=== PATIENT | female | born 1930 | race Caucasian/White ===

== ENCOUNTER 2016-04-18 10:41 | Emergency (ER) | payer BC, MEDICARE ==
[~2016-04-18] VITALS: Ht 162.6 cm; Wt 60.8 kg
[~2016-04-18 10:41] MED LIST: ACIP20TA19; ECOT81TA2; IMDU30TA; PRAV40TA; PRIN10TA
[2016-04-18 11:11] VITALS: BP 141/85; PULSE 74; RESP 16; TEMP 98.5; O2SAT 95
[2016-04-18] MEDS ORDERED: ISOS30TA3 PO (12:03)
[2016-04-18] MEDS ORDERED: PRAV20TA2 PO (12:03)
[2016-04-18] MEDS ORDERED: METO25TA3 PO (12:03)
[2016-04-18] MEDS ORDERED: GABA300C5 PO (12:03)
[2016-04-18] MEDS ORDERED: FERR1TAB58 PO (12:03)
[2016-04-18] MEDS ORDERED: APIX2.5T PO (12:03)
[2016-04-18] MEDS ORDERED: DEXAMETHASONE SOD PHOS 4 MG/ML VIAL IM ONE (12:15)
--- NOTE | 2016-04-18 12:18 | PD ---
HPI Chief Complaint: Musculoskeletal Complaint Time Seen by Provider: 12:12 Travel History International Travel<30 days: No Contact w/Intl Traveler<30days: No Traveled to known affect area: No History of Present Illness HPI 86-year-old female with history of arthritis presents to the emergency room for evaluation of left-sided back pain with radiation down her left lower extremity that has been ongoing for the past 4 days. Denies trauma or injury. Patient has history of chronic low back pain with occasional radiation down the left lower extremity but states it hasn't been this severe in a while. Pain is worsened with range of motion or ambulation. Improves with rest. She has been applying topical [id number] patches to the area without significant relief in symptoms. States this typically relieves her symptoms. She called her anesthesiologist for steroid injection, which has been helpful in the past, but they were unable to get her in. She then called her primary care physician who recommended she come to the emergency room for evaluation. She denies loss of bowel or bladder control, saddle anesthesia, or lower extremity paresthesias. She has been able to ambulate since onset of symptoms. States she is very active and this pain has kept her in bed more than usual the past few days. PFSH Past Medical History Cardiovascular Problems: Yes High Cholesterol: Yes Chest Pain: Yes GERD: Yes Genitourinary: No Hypertension: Yes Immune Disorder: No Musculoskeletal: Yes Neurologic: No Reproductive: No Respiratory: No Renal Failure: Yes Ulcer: Yes Tetanus Vaccination: < 5 Years Influenza Vaccination: Yes ?: Not Past Surgical History Abdominal Surgery: No Appendectomy: Yes Cardiac Surgery: Yes (STENTS) Cholecystectomy: Yes Coronary Stent: Yes Ear Surgery: No Endocrine Surgery: No Eye Surgery: No Genitourinary Surgery: No Gynecologic Surgery: No Oral Surgery: No Thoracic Surgery: No Social History Alcohol Use: Yes (RARELY) Tobacco Use: No (quit 50 years ago) Substance Use: No Allergies-Medications (Allergen,Severity, Reaction): Coded Allergies: Codeine (Verified Allergy, Intermediate, GI UPSET, 04/18/16) Reported Meds & Prescriptions Reported Meds & Active Scripts Active Reported Iron (Ferrous Sulfate) 50 Mg Tab 50 Mg PO DAILY Eliquis (Apixaban) 2.5 Mg Tab 2.5 Mg PO BID Metoprolol Tartrate 25 Mg Tab 25 Mg PO DAILY Gabapentin 300 Mg Cap 300 Mg PO HS Pravastatin 20 Mg Tab 20 Mg PO DAILY Isosorbide Mononitrate ER (Isosorbide Mononitrate) 30 Mg Venus 30 Mg PO DAILY Imdur (Isosorbide Mononitrate) 30 Mg Tab Aciphex (Rabeprazole Sodium) 20 Mg Tabdr Prinivil (Lisinopril) 10 Mg Tab Pravachol 40 Mg Tab Ecotrin Low Strength (Aspirin) 81 Mg Tabec Review of Systems Except as stated in HPI: all other systems reviewed are Neg Physical Exam Narrative GENERAL: Well-nourished, well-developed female in no acute distress. Afebrile. Ambulatory. SKIN: Warm and dry. No erythema or ecchymosis. HEAD: Normocephalic. EYES: No scleral icterus. No injection or drainage. NECK: Supple, trachea midline. No JVD or lymphadenopathy. BACK: Nontender without obvious deformity. No CVA tenderness. Data Data Last Documented VS Vital Signs Date Time Temp Pulse Resp B/P Pulse Ox O2 Delivery O2 Flow Rate FiO2 04/18/16 11:11 98.5 74 16 141/85 95 Orders Dexamethasone Inj (Decadron Inj) (04/18/16 12:15) MDM Medical Decision Making Medical Screen Exam Complete: Yes Emergency Medical Condition: Yes Medical Record Reviewed: Yes Differential Diagnosis Osteoarthritis versus sciatica versus degenerative disc disease versus chronic low back pain Narrative Course 86-year-old female with a history of osteoarthritis, back pain, and sciatica presents to the emergency room for evaluation of left-sided back pain with radiation down her left lower extremity for the past 4 days. No trauma or injury. No focal neurological deficits. Patient is ambulatory in the ER without difficulty. No midline tenderness. Given patient's age and chronic medical conditions, options for pain control are limited. She would prefer to avoid narcotic pain medications. She will be given a low-dose steroid injection in the emergency room and discharged with instructions to take Tylenol for pain. 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 She understands and agrees to this plan. Diagnosis Primary Impression: Left-sided low back pain with sciatica Qualified Code: M54.42 - Chronic left-sided low back pain with left-sided sciatica Referrals: Primary Care Physician Patient Instructions: General Instructions, Sciatica (ED) Additional Instructions: Rest and drink plenty of fluids. Take Tylenol as directed, as needed for pain. Apply ice to the affected area for 20 minutes at a time, as needed for pain and swelling. Follow-up with a primary care physician. Return to the emergency room for worsening symptoms. Disposition: 01 DISCHARGE HOME Condition: Stable Ebonie Pérez Apr 18, 2016 12:18
== END 2016-04-18 12:53 | disposition home or self-care (01) ==
LOC: PHEFT 10:41
DX: M54.42 Lumbago with sciatica, left side (principal); I10 Essential (primary) hypertension; E78.00 Pure hypercholesterolemia, unspecified
CPT/HCPCS: 96372; 99283; J1100

== ENCOUNTER → 2016-05-17 | Outpatient (CLI) | payer MEDICARE ==
[~2016-05-17] MED LIST changes: +APIX2.5T PO; +FERR1TAB58 PO; +GABA300C5 PO; +ISOS30TA3 PO; +METO25TA3 PO; +PRAV20TA2 PO
[2016-05-17 09:12] LABS: AUTOMATED NEUTROPHIL # 2.8 TH/MM3 (1.8-7.7); BASOPHIL % 0.8 % (0.0-2.0); EOSINOPHIL # 0.1 TH/MM3 (0-0.4); HEMATOCRIT 34.5 % (35.0-46.0); HEMO FLAGS DIFF FINAL; LYMPH % 29.7 % (9.0-44.0); LYMPHOCYTE # 1.5 TH/MM3 (1.0-4.8); MEAN CELL VOLUME 87.5 FL (80.0-100.0); MEAN CORPUSCULAR HEMOGLOBIN 29.6 PG (27.0-34.0); MEAN CORPUSCULAR HGB CONC 33.8 % (32.0-36.0); MONO % 9.7 % (0.0-8.0); NEUT % 56.8 % (16.0-70.0); PLATELET COUNT 213 TH/MM3 (150-450); RED BLOOD COUNT 3.94 MIL/MM3 (4.00-5.30); RED CELL DISTRIBUTION WIDTH 13.7 % (11.6-17.2)
[2016-05-17 10:07] LABS: ALKALINE PHOSPHATASE 57 U/L (45-117); ALT (GPT) 27 U/L (10-53); ANION GAP 7 MEQ/L (5-15); AST (GOT) 21 U/L (15-37); BICARBONATE 26.1 MEQ/L (21.0-32.0); BLOOD UREA NITROGEN 19 MG/DL (7-18); CHLORIDE 109 MEQ/L (98-107); GLOMERULAR FILTRATION RATE 40 ML/MIN (>89); GLUCOSE,FASTING 102 MG/DL (74-99); POTASSIUM 4.2 MEQ/L (3.5-5.1); SODIUM (NA) 142 MEQ/L (136-145); TOTAL BILIRUBIN ADULT 0.3 MG/DL (0.2-1.0)
== END ==
LOC: PLAB 07:21
PROVIDERS: ATTEND Family Medicine
DX: K21.9 Gastro-esophageal reflux disease without esophagitis (principal)
CPT/HCPCS: 36415; 80053; 85025

== ENCOUNTER → 2016-06-27 | Outpatient (CLI) | payer MEDICARE ==
[2016-06-27 10:04] LABS: HEMOGLOBIN A1a 0.8 %; HEMOGLOBIN A1b 1.8 %; HEMOGLOBIN P3 4.1 %
[2016-06-27 10:30] LABS: HDL CHOLESTEROL 53.1 MG/DL (40.0-60.0); LDL CHOLESTEROL 123 MG/DL (0-99)
== END ==
LOC: PLAB 08:01
PROVIDERS: ATTEND Family Medicine
DX: I25.10 Atherosclerotic heart disease of native coronary artery without angina pectoris (principal); E78.5 Hyperlipidemia, unspecified; R73.01 Impaired fasting glucose
CPT/HCPCS: 36415; 80061; 83036

== ENCOUNTER → 2017-05-23 | Outpatient (CLI) | payer MEDICARE ==
[2017-05-23 09:33] LABS: AUTOMATED NEUTROPHIL # 2.7 TH/MM3 (1.8-7.7); BASOPHIL % 0.9 % (0.0-2.0); EOSINOPHIL # 0.2 TH/MM3 (0-0.4); EOSINOPHIL % 3.3 % (0.0-4.0); HEMATOCRIT 34.9 % (35.0-46.0); HEMOGLOBIN 11.7 GM/DL (11.6-15.3); LYMPH % 28.9 % (9.0-44.0); LYMPHOCYTE # 1.3 TH/MM3 (1.0-4.8); MEAN CELL VOLUME 87.1 FL (80.0-100.0); MEAN CORPUSCULAR HEMOGLOBIN 29.2 PG (27.0-34.0); MEAN CORPUSCULAR HGB CONC 33.5 % (32.0-36.0); MEAN PLATELET VOLUME 8.7 FL (7.0-11.0); MONO % 8.3 % (0.0-8.0); MONOCYTE # 0.4 TH/MM3 (0-0.9); NEUT % 58.6 % (16.0-70.0); PLATELET COUNT 177 TH/MM3 (150-450); RED BLOOD COUNT 4.01 MIL/MM3 (4.00-5.30); RED CELL DISTRIBUTION WIDTH 14.3 % (11.6-17.2); WHITE BLOOD COUNT 4.7 TH/MM3 (4.0-11.0)
[2017-05-23 10:08] LABS: ALBUMIN 3.6 GM/DL (3.4-5.0); AST (GOT) 22 U/L (15-37); BICARBONATE 25.4 MEQ/L (21.0-32.0); BLOOD UREA NITROGEN 19 MG/DL (7-18); CALCIUM 9.1 MG/DL (8.5-10.1); CHLORIDE 108 MEQ/L (98-107); CREATININE 1.13 MG/DL (0.50-1.00); GLOMERULAR FILTRATION RATE 45 ML/MIN (>89); GLUCOSE,FASTING 88 MG/DL (74-99); SODIUM (NA) 142 MEQ/L (136-145); TRIGLYCERIDES 267 MG/DL (42-150)
[2017-05-23 10:09] LABS: CHOLESTEROL 259 MG/DL (120-200)
[2017-05-23 10:20] LABS: ALKALINE PHOSPHATASE 53 U/L (45-117); ALT (GPT) 21 U/L (10-53); CHOLESTEROL/ HDL RATIO 5.79 RATIO; HDL CHOLESTEROL 44.7 MG/DL (40.0-60.0); LDL CHOLESTEROL 161 MG/DL (0-99); TOTAL BILIRUBIN ADULT 0.3 MG/DL (0.2-1.0); TOTAL PROTEIN 6.9 GM/DL (6.4-8.2)
== END ==
LOC: PLAB 07:50
PROVIDERS: ATTEND Family Medicine
DX: I10 Essential (primary) hypertension (principal); E78.5 Hyperlipidemia, unspecified; I12.9 Hypertensive chronic kidney disease with stage 1 through stage 4 chronic kidney disease, or unspecified chronic kidney disease
CPT/HCPCS: 36415; 80053; 80061; 84443; 85025